=== PATIENT | male | born 1980 | race Caucasian/White ===

== ENCOUNTER 2021-01-14 13:36 | Emergency (ER) | payer MEDICAID ==
--- NOTE | 2021-01-14 15:59 | ED Physician Documentation ---
PD HPI HEENT - Stated complaint Stated Complaint: L SIDE JAW PX - Chief complaint Chief Complaint: Heent - History obtained from History obtained from: Patient - History of Present Illness Timing - onset: How many days ago (4) Timing - duration: Days (4) Timing - details: Gradual onset, Still present Location: Tooth Improves: Medication Worsens: Swalllowing, Position, Temperatures Associated symptoms: Facial swelling. No: Fever, Congestion, Rhinorrhea, Trismus, Unable to swallow, Swollen nodes, Headache, Cough Similar symptoms before: Diagnosis (tooth abcess) Recently seen: Not recently seen - Additional information Additional information: 40-year-old male without a current primary care doctor has developed swelling and tenderness to a molar on his left lower jaw. He has increasing pain over the last 4 days and marked swelling. He does not have a dentist. He is not allergic to anything. Review of Systems Constitutional: denies: Fever Eyes: denies: Decreased vision Ears: denies: Ear pain Nose: denies: Congestion Throat: reports: Dental pain / toothache. denies: Sore throat Cardiac: denies: Chest pain / pressure Respiratory: denies: Dyspnea, Cough GI: denies: Vomiting PD PAST MEDICAL HISTORY - Past Surgical History Past Surgical History: Yes - Present Medications Home Medications: Ambulatory Orders Medication Instructions Recorded Confirmed HYDROcod/ACETAM 5/325 [Vicodin 1 - 2 ea PO Q6H PRN #15 tablet 07/10/13 5/325] Sulfamethox/Trimeth 800/160 1 each PO BID 07/10/13 07/10/13 [Bactrim Ds] Amoxicillin 875 mg PO BID #14 tablet 01/14/21 HYDROcod/ACETAM 5/325 [[place] 5/325] 1 - 2 tablet PO Q6H PRN #14 tablet 01/14/21 - Allergies Allergies/Adverse Reactions: Allergies Allergy/AdvReac Type Severity Reaction Status Date / Time No Known Drug Allergies Allergy Verified 07/10/13 09:19 - Social History Does the pt smoke?: No Smoking Status: Never smoker Does the pt drink ETOH?: Yes Does the pt have substance abuse?: No (Past history of IVDA.) - Immunizations Immunizations are current?: Yes - POLST Patient has POLST: No POLST Status: Full Code PD ED PE NORMAL - Vitals Vital signs reviewed: Yes (Hypertensive) - General General: Alert and oriented X 3, Well developed/nourished, Other (Obvious swelling to the left face) - HEENT HEENT: Atraumatic, PERRL, EOMI, Other (Swelling and point tenderness to the lower jaw over the gingival mucosa opposing the buccal mucosa on the left lower posterior molars. No fluctuance. 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 We will place him on some amoxicillin and pain medication and I have encouraged him to get his Covid vaccination. Departure - Departure Disposition: 01 Home, Self Care Clinical Impression: Dental abscess Condition: Stable Instructions: ED Abscess Dental Follow-Up: [facility] [Provider Group] Prescriptions: Amoxicillin 875 mg PO BID #14 tablet HYDROcod/ACETAM 5/325 [[place] 5/325] 1 - 2 tablet PO Q6H PRN #14 tablet PRN Reason: Pain Comments: When you were at the pharmacy today picking up the medication for your jaw asked them about a Covid vaccination.
[2021-01-14 16:16] VITALS: BP 148/103
== END 2021-01-14 16:10 | disposition home or self-care (01) ==
LOC: ED 13:36
DX: K04.7 Periapical abscess without sinus (principal)
CPT/HCPCS: 99282; 99284

== ENCOUNTER 2021-04-08 13:02 | Emergency (ER) | payer MEDICAID ==
--- NOTE | 2021-04-08 13:17 | ED Physician Documentation ---
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 For several months he has had at times severe left lower quadrant pain associated with significant constipation, sometimes going a couple of weeks without eating. When it is particularly bad he vomits from it. Denies fevers. No weight loss. He has had tried laxatives including pill for magnesium citrate without relief. Review of Systems Ten Systems: 10 systems reviewed and negative Constitutional: denies: Fever, Chills Nose: reports: Reviewed and negative Throat: reports: Reviewed and negative Cardiac: reports: Reviewed and negative Respiratory: reports: Reviewed and negative PD PAST MEDICAL HISTORY - Past Surgical History Past Surgical History: Yes - Present Medications Home Medications: Ambulatory Orders Medication Instructions Recorded Confirmed Docusate Sodium 100Mg Capsule 100 mg PO BID #60 04/08/21 [Colace 100Mg Capsule] Lactulose 10 gm PO QID PRN #300 ml 04/08/21 Methadone HCl 80 mg PO DAILY 04/08/21 04/08/21 bisacodyL [Dulcolax] 5 mg PO BID PRN #60 tab 04/08/21 - Allergies Allergies/Adverse Reactions: Allergies Allergy/AdvReac Type Severity Reaction Status Date / Time No Known Drug Allergies Allergy Verified 04/08/21 13:05 - Social History Does the pt smoke?: No Smoking Status: Never smoker Does the pt drink ETOH?: Yes Does the pt have substance abuse?: No (Past history of IVDA.) - Immunizations Immunizations are current?: Yes - POLST Patient has POLST: No POLST Status: Full Code PD ED PE NORMAL - Vitals Vital signs reviewed: Yes - General General: Alert and oriented X 3, No acute distress - Cardiac Cardiac: RRR, No murmur - Respiratory Respiratory: No respiratory distress, Clear bilaterally - Abdomen Abdomen: Normal bowel sounds, Soft, Other (Mildly bloated, mild left lower quadrant tenderness without surgical signs) - Neuro Neuro: Alert and oriented X 3, Normal speech Results - Vitals Vitals: Vital Signs - 24 hr 04/08/21 13:05 Temperature 36.4 C L Heart Rate 102 H Respiratory 20 Rate Blood Pressure 184/110 H O2 Saturation 98 Oxygen O2 Source Room air - Labs Labs: Laboratory Tests 04/08/21 04/08/21 13:52 13:52 WBC 7.0 RBC 5.48 Hgb 15.2 Hct 46.0 MCV 83.9 MCH 27.7 MCHC 33.0 RDW 13.0 Plt Count 217 MPV 10.2 Neut # (Auto) 3.2 Lymph # (Auto) 2.9 [place] # (Auto) 0.4 Eos # (Auto) 0.4 Baso # (Auto) 0.1 Absolute Nucleated RBC 0.00 Nucleated RBC % 0.0 Sodium 138 Potassium 4.1 Chloride 102 Carbon Dioxide 25 Anion Gap 11.0 BUN 10 Creatinine 0.9 Estimated GFR (MDRD) 94 Glucose 132 H Calcium 9.5 Total Bilirubin 0.8 AST 40 ALT 67 H Alkaline Phosphatase 38 L Total Protein 8.1 Albumin 4.6 Globulin 3.5 Albumin/Globulin Ratio 1.3 Lipase 29 - Rads (name of study) CT A/P Radiology: EMP read contemporaneously PD MEDICAL DECISION MAKING - ED course ED course: 40-year-old gentleman with history of IV drug use now on methadone presents with left lower quadrant pain and constipation. Given the tenderness and longstanding nature as well as lack of relief with [id number] laxatives CT was done without pertinent positive findings except for fatty liver. He states he gets ongoing testing for hepatitis C and has so far been negative given his history. Departure - Departure Disposition: 01 Home, Self Care Clinical Impression: Constipation Qualifiers: Constipation type: drug induced constipation Qualified Code(s): K59.03 - Drug induced constipation Abdominal pain Qualifiers: Abdominal location: left lower quadrant Qualified Code(s): R10.32 - Left lower quadrant pain Condition: Good Record reviewed to determine appropriate education?: Yes Instructions: ED Constipation Prescriptions: Docusate Sodium 100Mg Capsule [Colace 100Mg Capsule] 100 mg PO BID #60 bisacodyL [Dulcolax] 5 mg PO BID PRN #60 tab PRN Reason: Constipation Lactulose 10 gm PO QID PRN #300 ml PRN Reason: Constipation Comments: Take the docusate twice a day with plenty of liquids. That should be your base to keep your stools soft. In addition to that the lactulose is quite powerful and can be taken up to 4 times a day as needed to keep you regular, bisacodyl may cause more cramps but if you are really having trouble keeping things moving you can take 1 or 2 a day. Return for new or worsening symptoms. Follow-up with your physician next available appointment, if you continue to have problems consider referral for colonoscopy.
[2021-04-08] MEDS ORDERED: IOVERSOL 320 100 ML VIAL IVP ONE (13:24)
[2021-04-08 13:56] LABS: BASOPHILS # (AUTO) 0.1 10^3/uL (0.0-0.1); EOSINOPHILS # (AUTO) 0.4 10^3/uL (0.0-0.7); EOSINOPHILS % (AUTO) 5.5 %; HGB - HEMOGLOBIN 15.2 g/dL (14.0-18.0); LYMPHOCYTES # (AUTO) 2.9 10^3/uL (1.5-3.5); MEAN CORPUSCULAR HEMOGLOBIN 27.7 pg (27.0-31.0); MEAN CORPUSCULAR VOLUME 83.9 fL (80.0-94.0); MEAN PLATELET VOLUME 10.2 fL (7.4-11.4); MONOCYTES # (AUTO) 0.4 10^3/uL (0.0-1.0); MONOCYTES % (AUTO) 5.9 %; NEUTROPHILS # (AUTO) 3.2 10^3/uL (1.5-6.6); PLT - PLATELET COUNT 217 10^3/uL (130-450); RED BLOOD COUNT 5.48 10^6/uL (4.70-6.10)
[2021-04-08 14:11] LABS: ALBUMIN 4.6 g/dL (3.2-5.5); ALBUMIN/GLOBULIN RATIO 1.3 (1.0-2.2); BILIRUBIN,TOTAL 0.8 mg/dL (0.2-1.0); CALCIUM 9.5 mg/dL (8.5-10.3); CREATININE 0.9 mg/dL (0.6-1.2); POTASSIUM 4.1 mmol/L (3.5-5.0); TOTAL PROTEIN 8.1 g/dL (6.7-8.2)
--- NOTE | 2021-04-08 14:30 | CT Report ---
PROCEDURE: Abdomen/Pelvis W INDICATIONS: IV only, LLQ pain, ok to take before labs CONTRAST: IV CONTRAST: Optiray 320 ml: 100 PO CONTRAST: *NO PO CONTRAST TECHNIQUE: After the administration of intravenous contrast, 5 mm thick sections acquired from the diaphragms to the symphysis. 5 mm thick coronal and sagittal reformats were acquired. For radiation dose reducti on, the following was used: automated exposure control, adjustment of mA and/or kV according to tiffany ent size. COMPARISON: None. FINDINGS: Image quality: Excellent. ABDOMEN: Lung bases: Lung bases are clear. Heart size is normal. Solid organs: The liver is diffusely hypoattenuating, consistent with fat infiltration. The spleen is normal in size. Gallbladder is mildly contracted. Biliary system is non dilated. Pancreas enhances normally. No adrenal nodules. Kidneys demonstrate normal size and enhancement, without hydronephro sis. Peritoneum and bowel: There is moderate stool throughout the colon. A retrocecal appendix appears nor mal. No signs of bowel obstruction. No free fluid or air. Nodes and vessels: No retroperitoneal or mesenteric adenopathy by size criteria. Aorta and inferior vena cava are normal in size. Miscellaneous: Tiny periumbilical hernia contains fat. PELVIS: Genitourinary: Bladder wall thickness is normal. Miscellaneous: No inguinal hernias or adenopathy. Bones: No suspicious bony lesions. No vertebral body compression fractures. Focal degenerative veronica nges are seen at the L5-S1 level. IMPRESSION: 1.No acute abnormality identified in the abdomen or pelvis. 2.Diffuse hepatic steatosis. Reviewed by: Smith Fajardo MD on 04/08/2021 2:29 PM PST Approved by: Smith Fajardo MD on 04/08/2021 2:29 PM PST Station ID: [id number]
[2021-04-08] MEDS: IOVERSOL 320 100 ML VIAL IVP ONE (14:35)
[2021-04-08 14:50] VITALS: BP 140/95
== END 2021-04-08 14:50 | disposition home or self-care (01) ==
LOC: ED 13:02
DX: K59.03 Drug induced constipation (principal); R10.32 Left lower quadrant pain
CPT/HCPCS: 36415; 74177; 80053; 83690; 85025; 99283; 99284; Q9967

== ENCOUNTER 2023-05-15 11:48 | Emergency (ER) | payer MEDICAID ==
[2023-05-15] MEDS ORDERED: MAGNESIUM CITRATE 296 ML BOTTLE PO STA (15:38)
--- NOTE | 2023-05-15 15:42 | ED Physician Documentation ---
PD HPI SKIN - Stated complaint Stated Complaint: RT SIDE/ABD PX, - Chief complaint Chief Complaint: Wound - History obtained from History obtained from: Patient - Additional information Additional information: Pt with rash and R flank pain x 2 days. Described it as a deep aching pain. No dysuria or hematuria. No fever, vomiting. Did have chicken pox as a child. Reports recent constipation with no relief after trial of miralax and stool softeners - states has had magnesium citrate here before and it has helped. Review of Systems Constitutional: denies: Fever Cardiac: denies: Chest pain / pressure Respiratory: denies: Dyspnea GI: reports: Constipation. denies: Abdominal Pain, Vomiting : denies: Dysuria Skin: reports: Rash PD PAST MEDICAL HISTORY - Past Medical History Past Medical History: Yes GI: Chronic constipation - Past Surgical History Past Surgical History: Yes - Present Medications Home Medications: Ambulatory Orders Medication Instructions Recorded Confirmed Methadone HCl 75 mg PO DAILY 04/08/21 04/08/21 Naloxone HCl Nasal [Narcan Nasal] 4 mg NS ONCE PRN #2 kit 05/15/23 oxyCODONE [Roxicodone] 5 mg PO Q6H PRN #15 tablet 05/15/23 predniSONE [Deltasone] 20 mg PO [id number] #21 tab 05/15/23 valACYclovir [Valtrex] 1,000 mg PO TID 7 Days #42 tablet 05/15/23 - Allergies Allergies/Adverse Reactions: Allergies Allergy/AdvReac Type Severity Reaction Status Date / Time No Known Drug Allergies Allergy Verified 05/15/23 15:30 - Social History Does the pt smoke?: Yes Smoking Status: Current every day smoker Does the pt drink ETOH?: Yes Does the pt have substance abuse?: No - Immunizations Immunizations are current?: Yes - POLST Patient has POLST: No POLST Status: Full Code PD ED PE NORMAL - General General: Alert and oriented X 3, No acute distress, Well developed/nourished - HEENT HEENT: Atraumatic, Moist mucous membranes, Pharynx benign - Neck Neck: Supple, no meningeal sign - Cardiac Cardiac: RRR, Strong equal pulses - Respiratory Respiratory: No respiratory distress, Clear bilaterally - Abdomen Abdomen: Normal bowel sounds, Soft, Non tender, Non distended - Back Back: No CVA TTP - Derm Derm: Other (Vesicular rash with erythema to R flank in dermatomal distribution) - Neuro Neuro: Normal speech Results - Vitals Vitals: Vital Signs - 24 hr 05/15/23 05/15/23 05/15/23 12:26 15:31 16:00 Temperature 36.6 C Heart Rate 82 91 84 Respiratory 18 18 16 Rate Blood Pressure 153/97 H 162/113 H 162/105 H O2 Saturation 98 99 98 Oxygen O2 Source Room air PD Medical Decision Making - ED course ED course: Pt with R flank pain and rash. Rash appears consistent with shingles. Also reports constipation - chronically on methadone. Abdominal exam is benign. Discussed recommendations for treatment of shingles as well as for his constipation. Pt agreeable and counseled on need for follow up and concerning symptoms to return for. Departure - Departure Disposition: 01 Home, Self Care Clinical Impression: Shingles rash, Constipation Condition: Stable Instructions: ED Constipation, ED Shingles Prescriptions: predniSONE [Deltasone] 20 mg PO [id number] #21 tab Naloxone HCl Nasal [Narcan Nasal] 4 mg NS ONCE PRN #2 kit PRN Reason: narcotic overdose oxyCODONE [Roxicodone] 5 mg PO Q6H PRN #15 tablet PRN Reason: Pain valACYclovir [Valtrex] 1,000 mg PO TID 7 Days #42 tablet Comments: Your rash appears classic for shingles. I am starting on medications to help with this viral infection and have sent your prescriptions to [facility] in [place]. I would recommend follow-up with your primary care provider. We have also given you a bottle of magnesium citrate to use for constipation. Return to the emergency department if you develop any worsening symptoms. I am prescribing a short course of narcotic pain medication for you. These are potentially dangerous and addictive medications that should be used carefully. These medications may constipate you. Take an fnag-zxy-pdohaqp stool softener (docusate) twice daily with plenty of water while taking these medications. If you go 24 hours without a bowel movement, take [id number] miralax, per package instructions. Do not drink or drive while taking these medications. If you received narcotic or sedating medications while in the emergency department, do not drive for 24 hours. Store this medication in a safe, secure place and out of reach of children. It is a violation of federal law to give or sell this medication to another person or to use in a manner other than prescribed. The ED will not refill narcotic prescriptions, including prescriptions lost or stolen. To dispose of unwanted medications: 1. [facility] at [address] in [place] has a medication drop box. They accept prescription medications (in pill form) Saturday through Saturday 9:00 a.m. to 5:00 p.m. 2. The [facility] accepts prescription medications (in pill form only) for disposal year round. Call for more information. 3. Contact the [facility] for the next [facility] sponsored prescription drug collection event. , [phone], or [phone]; Note that many narcotic pain relievers also contain Tylenol/acetaminophen. Please ensure that your total dose of acetaminophen from all sources does not exceed 3 g (3000 mg) per day. Forms: PCP List Discharge Date/Time: 05/15/23 16:00
[2023-05-15 16:41] VITALS: BP 162/105; O2SAT 98
== END 2023-05-15 16:00 | disposition home or self-care (01) ==
LOC: ED 11:48
DX: B02.9 Zoster without complications (principal); K59.00 Constipation, unspecified; F17.200 Nicotine dependence, unspecified, uncomplicated
CPT/HCPCS: 99282; 99283; A9270

== ENCOUNTER 2023-06-16 17:58 | Emergency (ER) | payer MEDICAID ==
[2023-06-16] MEDS ORDERED: predniSONE 20 MG TABLET PO STA (18:48)
--- NOTE | 2023-06-16 18:51 | ED Physician Documentation ---
PD HPI ABD PAIN - Stated complaint Stated Complaint: ABD PX - Chief complaint Chief Complaint: Abd Pain - History obtained from History obtained from: Patient - Additional information Additional information: 42-year-old gentleman has chronic undiagnosed left lower quadrant pain. It feels like somebody hit him in the gut with a bat. He was supposed to have a colonoscopy but was lost to follow-up because of some personal issues. He recently had shingles and while he was on the prednisone his left lower quadrant pain resolved and he was feeling normal. Now that he is off the prednisone the pain is back and he wonders if he could go back on the prednisone. PD PAST MEDICAL HISTORY - Past Medical History Past Medical History: Yes GI: Chronic constipation - Past Surgical History Past Surgical History: Yes - Present Medications Home Medications: Ambulatory Orders Medication Instructions Recorded Confirmed Methadone HCl 75 mg PO DAILY 04/08/21 04/08/21 Naloxone HCl Nasal [Narcan Nasal] 4 mg NS ONCE PRN #2 kit 05/15/23 oxyCODONE [Roxicodone] 5 mg PO Q6H PRN #15 tablet 05/15/23 predniSONE [Deltasone] 20 mg PO [id number] #21 tab 05/15/23 valACYclovir [Valtrex] 1,000 mg PO TID 7 Days #42 tablet 05/15/23 Budesonide [Ortikos] 9 mg PO DAILY #56 cap 06/16/23 - Allergies Allergies/Adverse Reactions: Allergies Allergy/AdvReac Type Severity Reaction Status Date / Time No Known Drug Allergies Allergy Verified 06/16/23 18:03 - Social History Does the pt smoke?: Yes Smoking Status: Current every day smoker Does the pt drink ETOH?: Yes Does the pt have substance abuse?: No - Immunizations Immunizations are current?: Yes - POLST Patient has POLST: No POLST Status: Full Code PD ED PE NORMAL - Vitals Vital signs reviewed: Yes - General General: Alert and oriented X 3, No acute distress - Abdomen Abdomen: Normal bowel sounds, Soft, Non tender - Neuro Neuro: Alert and oriented X 3, Normal speech - Psych Psych: Normal mood, Normal affect Results - Vitals Vitals: Vital Signs - 24 hr 06/16/23 18:04 Temperature 36.8 C Heart Rate 96 Respiratory 18 Rate Blood Pressure 160/88 H O2 Saturation 99 Oxygen O2 Source Room air PD Medical Decision Making - ED course ED course: 42-year-old gentleman with an exacerbation of left lower quadrant pain. Very benign examination. Given the resolution for a time with the prednisone 1 would presume inflammatory bowel disease, and discussed with him that we would not want him on prednisone long-term but we could do some budesonide instead given fewer side effects. Departure - Departure Disposition: 01 Home, Self Care Clinical Impression: Abdominal pain Qualifiers: Abdominal location: left lower quadrant Qualified Code(s): R10.32 - Left lower quadrant pain Condition: Good Record reviewed to determine appropriate education?: Yes Instructions: ED Abdominal Pain Unkn Cause Male Prescriptions: Budesonide [Ortikos] 9 mg PO DAILY #56 cap Comments: The fact that your chronic left lower quadrant pain improved with the prednisone would be suggestive of inflammatory bowel disease such as Crohn's disease or ulcerative colitis. You really do need to get that colonoscopy as discussed. I sent your prescription electronically to [facility] in [place]. Return if worse.
[2023-06-16 19:34] VITALS: BP 158/100; O2SAT 98
--- NOTE | 2023-06-17 09:18 | ED Physician Documentation ---
ED Addendum - Addendum Addendum: 06/17/23 09:16 Patient was seen yesterday for abdominal pain with concerns for possible inflammatory bowel disease. He was given a dose of prednisone here and sent a prescription of budesonide to his pharmacy. Patient was unable to get the budesonide this morning as it is quite expensive and [facility] also does not carry it and would need to get a prior authorization for this medication. He has called requesting a prescription for prednisone. I did review Dr. Marte's note and also expressed concerns about long-term steroid use without Involvement of PCP or GI. We have discussed this and he does plan on following up with his PCP in the next week but does report needing something to hold him over until he can get in. I will place him on a 10-day tapering course of prednisone. Patient is counseled on need for close follow-up.
== END 2023-06-16 19:25 | disposition home or self-care (01) ==
LOC: ED 17:58
DX: R10.32 Left lower quadrant pain (principal); G89.29 Other chronic pain
CPT/HCPCS: 99283; J7512; 80053; 83690; 85025